=== PATIENT | male | born 1945 | race Hispanic/Latino ===

== ENCOUNTER 2017-03-02 13:32 | Observation (INO) | payer OTHER ==
[~2017-03-02] VITALS: Ht 167.6 cm; Wt 74.2 kg
[~2017-03-02 13:32] MED LIST: AEC81 PO; GLIP5TAB11 PO; LEVO25TA9 PO; METO25 PO; METR500T PO; ROSU40TA28 PO; TAMS-1 PO
[2017-03-02] MEDS ORDERED: HYDRALAZINE HCL 20 MG/ML VIAL IV PRN (14:15)
[2017-03-02] MEDS ORDERED: MORPHINE SULFATE 2 MG/ML 1ML SYG IV PRN (14:15)
[2017-03-02] MEDS ORDERED: ONDANSETRON HCL 4 MG/2 ML VIAL IV PRN (14:15)
[2017-03-02] MEDS ORDERED: MORPHINE SULFATE 4 MG/1ML SYG IV PRN (14:15)
[2017-03-02] MEDS ORDERED: MAG HYDROX/AL HYDROX/SIMETH ES 30 ML SUSP UDCUP PO PRN (14:15)
[2017-03-02] MEDS ORDERED: GUAIFENESIN-DM 200/20 MG 10 ML PO PRN (14:15)
[2017-03-02] MEDS ORDERED: ACETAMINOPHEN-CODEINE 300/30MG TAB PO PRN ×2 (14:15)
[2017-03-02] MEDS ORDERED: NITROGLYCERIN 0.4 MG SL TAB SL PRN (14:15)
[2017-03-02] MEDS ORDERED: ACETAMINOPHEN 325 MG TAB PO PRN ×2 (14:15)
[2017-03-02] MEDS ORDERED: LACTULOSE 20 GM/30 ML UDCUP PO PRN (14:15)
[2017-03-02 15:14] LABS: BASOPHILS % (AUTO) 0.7 % (0.0-5.0); EOSINOPHILS % (AUTO) 2.1 % (0.0-8.0); LYMPHOCYTES % (AUTO) 20.6 % (21.0-51.0); MEAN CORPUSCULAR HEMOGLOBIN 27.5 pg (27.0-33.0); MEAN CORPUSCULAR HGB CONC 33.6 g/dL (32.0-36.0); MEAN CORPUSCULAR VOLUME 81.9 fL (79-99); MONOCYTES % (AUTO) 9.5 % (3.0-13.0); NEUTROPHILS % (AUTO) 67.1 % (40.0-77.0); PLATELET COUNT (AUTO) 311 K/uL (130-400); RED BLOOD CELL COUNT(AUTO) 3.42 MIL/uL (4.50-6.20); RED CELL DISTRIBUTION WIDTH 15.5 % (11.0-15.5); WHITE BLOOD COUNT (AUTO) 12.9 K/uL (4.8-10.8)
[2017-03-02 15:21] LABS: APPEARANCE,URINE Clear (CLEAR); BILIRUBIN,URINE Negative (NEGATIVE); COLOR,URINE Yellow (YELLOW); GLUCOSE, URINE (UA) Negative (NEGATIVE); KETONES,URINE Negative (NEGATIVE); LEUKOCYTE ESTERASE ,URINE Small (NEGATIVE); NITRATE,URINE Negative (NEGATIVE); OCCULT BLOOD,URINE Negative (NEGATIVE); PROTEIN,URINE Negative (NEGATIVE); UROBILINOGEN,URINE 0.2 mg/dL (0.2-1.0)
[2017-03-02 15:26] LABS: INR 1.04 (0.85-1.15); PROTHROMBIN TIME 10.9 SEC (9.6-11.6)
[2017-03-02 15:28] LABS: ALBUMIN 2.7 g/dL (3.5-5.0); BILIRUBIN,TOTAL 0.3 mg/dL (0.2-1.0); CREATININE 3.3 mg/dL (0.5-1.5); POTASSIUM 5.5 mmol/L (3.5-5.1); TOTAL PROTEIN, SERUM 7.3 g/dL (6.0-8.3)
[2017-03-02 15:32] LABS: RETICULOCYTE % (AUTO) 2.03 % (0.42-2.23)
[2017-03-02 15:35] LABS: BACTERIA,URINE Few /HPF (None Seen); MUCUS,URINE Rare LPF (None Seen); RBC,URINE 0-1 /HPF (0-1); SQUAMOUS EPITHELIAL CELL,UR Rare /LPF (0-2)
[2017-03-02 16:21] LABS: % IRON SATURATION 14.8 % (30-44)
[2017-03-02] MEDS: INSULIN HUMULIN R 100 UNIT/ML 3ML SQ SCH ×2 (16:30→21:00)
[2017-03-02] MEDS ORDERED: FAMOTIDINE/PF 20 MG/2 ML VIAL IV ONE (20:17)
[2017-03-02] MEDS: FAMOTIDINE/PF 20 MG/2 ML VIAL IV SCH (21:00)
[2017-03-02] MEDS ORDERED: LISI-613 PO (22:33)
[2017-03-02] MEDS ORDERED: ESOM40CA54 PO (22:33)
[2017-03-02 22:35] VITALS: BP 95/47
[2017-03-02 23:53] VITALS: BP 98/48
[2017-03-03] MEDS ORDERED: CEFTRIAXONE SODIUM 1 GM ONE (02:22)
[2017-03-03] MEDS: SODIUM CHLORIDE 0.9% 1000ML 1,000 ML IV SCH ×3 (02:28→21:01)
[2017-03-03] MEDS: CEFTRIAXONE 1GM/D5W 50ML 50 ML IV SCH (02:28)
[2017-03-03 04:00] VITALS: BP 113/62
[2017-03-03 05:25] LABS: MEAN CORPUSCULAR HEMOGLOBIN 27.6 pg (27.0-33.0); MEAN CORPUSCULAR HGB CONC 34.1 g/dL (32.0-36.0); PLATELET COUNT (AUTO) 278 K/uL (130-400); RED BLOOD CELL COUNT(AUTO) 3.33 MIL/uL (4.50-6.20); RED CELL DISTRIBUTION WIDTH 15.5 % (11.0-15.5)
[2017-03-03 05:43] LABS: CREATININE 2.5 mg/dL (0.5-1.5)
[2017-03-03 07:00] VITALS: BP 97/52
[2017-03-03] MEDS: INSULIN HUMULIN R 100 UNIT/ML 3ML SQ SCH ×3 (07:04→20:40)
[2017-03-03] MEDS: PNEUMOCOCCAL VACCINE POLYVALENT 0.5 ML/VIAL [PPV] IM SCH (07:30)
[2017-03-03] MEDS: NYSTATIN 15 GM POWDER TP SCH ×4 (09:00→20:58)
[2017-03-03] MEDS: SODIUM POLYSTYRENE SULFONATE 15 GM/60 ML ML PO SCH (09:31)
[2017-03-03] MEDS: FAMOTIDINE/PF 20 MG/2 ML VIAL IV SCH ×2 (09:32→20:57)
[2017-03-03] MEDS ORDERED: DEXTROSE 50%-WATER 50 ML DISP.SYRIN IV SCH (10:45)
[2017-03-03] MEDS ORDERED: PHARMACY COMMUNICATION MISC SCH (10:45)
[2017-03-03] MEDS ORDERED: INSULIN HUMULIN R 100 UNIT/ML 3ML SQ SCH (10:45)
[2017-03-03 11:00] VITALS: BP 97/54
[2017-03-03] MEDS ORDERED: FLU VACC QS2017-18 36MOS UP/PF 60 MCG/0.5 ML ML IM SCH (12:15)
[2017-03-03 15:57] VITALS: BP 92/51
[2017-03-03 19:59] VITALS: BP 104/57
[2017-03-03 23:52] VITALS: BP 100/48
[2017-03-04] MEDS: CEFTRIAXONE 1GM/D5W 50ML 50 ML IV SCH (01:15)
[2017-03-04] MEDS ORDERED: CEFTRIAXONE SODIUM 1 GM ONE (01:36)
[2017-03-04 04:00] VITALS: BP 98/59
[2017-03-04] MEDS: INSULIN HUMULIN R 100 UNIT/ML 3ML SQ SCH ×3 (06:34→16:30)
[2017-03-04] MEDS: PNEUMOCOCCAL VACCINE POLYVALENT 0.5 ML/VIAL [PPV] IM SCH (07:30)
[2017-03-04 08:01] VITALS: BP 96/49
[2017-03-04] MEDS: FAMOTIDINE/PF 20 MG/2 ML VIAL IV SCH (09:12)
[2017-03-04] MEDS: SODIUM POLYSTYRENE SULFONATE 15 GM/60 ML ML PO SCH (09:13)
[2017-03-04] MEDS: NYSTATIN 15 GM POWDER TP SCH ×2 (09:14→14:27)
[2017-03-04 11:32] VITALS: BP 94/54
[2017-03-04 14:35] LABS: CREATININE 1.7 mg/dL (0.5-1.5); POTASSIUM 5.2 mmol/L (3.5-5.1)
[2017-03-04 16:25] VITALS: BP 105/59
[2017-03-04] MEDS: SODIUM CHLORIDE 0.9% 1000ML 1,000 ML IV SCH (16:45)
== END 2017-03-04 17:30 | disposition home or self-care (01) ==
LOC: EDH 13:32 → EDHIP 13:33 → 3AH 22:01
PROVIDERS: ADMIT Internal Medicine; ATTEND Internal Medicine
DX: D53.9 Nutritional anemia, unspecified (principal); M10.9 Gout, unspecified; I12.9 Hypertensive chronic kidney disease with stage 1 through stage 4 chronic kidney disease, or unspecified chronic kidney disease; E11.22 Type 2 diabetes mellitus with diabetic chronic kidney disease; N18.3 Chronic kidney disease, stage 3 (moderate); N17.9 Acute kidney failure, unspecified; E87.5 Hyperkalemia; E78.5 Hyperlipidemia, unspecified; E86.0 Dehydration; I25.10 Atherosclerotic heart disease of native coronary artery without angina pectoris; Z86.79 Personal history of other diseases of the circulatory system; Z87.891 Personal history of nicotine dependence; Z90.49 Acquired absence of other specified parts of digestive tract; Z95.1 Presence of aortocoronary bypass graft
CPT/HCPCS: 36415 ×3; 80048 ×2; 80053; 81001; 82270; 82607; 82728; 82746; 82948 ×11; 84132 ×2; 85025; 85027; 85610; 85730; 86850; 86900; 86901; 86922; 96372; 96374; 96375; 96376 ×2; 99285; A4218 ×2; G0378 ×52; J0696 ×4; J1815; J3490 ×4; J7030 ×2; J7070

== ENCOUNTER → 2017-03-12 | Outpatient (CLI) | payer OTHER ==
[~2017-03-12] MED LIST changes: +ESOM40CA54 PO; -METR500T PO
== END | disposition home or self-care (01) ==
LOC: RAH 09:49
PROVIDERS: ATTEND Surgery
DX: K81.0 Acute cholecystitis (principal)
CPT/HCPCS: 78226; A9537

== ENCOUNTER 2021-02-01 20:23 | Inpatient (IN) | payer OTHER ==
[~2021-02-01] VITALS: Ht 172.7 cm; Wt 80.6 kg
[~2021-02-01 20:23] MED LIST changes: +ROSU40TA21 PO; -ROSU40TA28 PO
[2021-02-01 22:24] LABS: BASOPHILS % (AUTO) 1.1 % (0.0-5.0); EOSINOPHILS % (AUTO) 4.8 % (0.0-8.0); HEMATOCRIT 53.9 % (42-54); LYMPHOCYTES % (AUTO) 24.8 % (21.0-51.0); MEAN CORPUSCULAR HEMOGLOBIN 29.2 pg (27.0-33.0); MEAN CORPUSCULAR HGB CONC 32.3 g/dL (32.0-36.0); MEAN CORPUSCULAR VOLUME 90.4 fL (79-99); MONOCYTES % (AUTO) 7.3 % (3.0-13.0); NEUTROPHILS % (AUTO) 61.6 % (40.0-77.0); PLATELET COUNT (AUTO) 168 K/uL (130-400); RED BLOOD CELL COUNT(AUTO) 5.96 MIL/uL (4.50-6.20); RED CELL DISTRIBUTION WIDTH 14.8 % (11.0-15.5); WHITE BLOOD COUNT (AUTO) 7.9 K/uL (4.8-10.8)
[2021-02-01 22:25] LABS: APPEARANCE,URINE Clear (CLEAR); BILIRUBIN,URINE Negative (NEGATIVE); COLOR,URINE Yellow (YELLOW); GLUCOSE, URINE (UA) >=1000 mg/dL (NEGATIVE); KETONES,URINE Negative (NEGATIVE); LEUKOCYTE ESTERASE ,URINE Negative (NEGATIVE); NITRATE,URINE Negative (NEGATIVE); OCCULT BLOOD,URINE Negative (NEGATIVE); PROTEIN,URINE Trace mg/dL (NEGATIVE); UROBILINOGEN,URINE 0.2 mg/dL (0.2-1.0)
[2021-02-01 22:40] LABS: CREATININE 1.4 mg/dL (0.5-1.5); POTASSIUM 4.8 mmol/L (3.5-5.1)
[2021-02-01 22:44] LABS: BILIRUBIN,TOTAL 0.3 mg/dL (0.2-1.0); TOTAL PROTEIN, SERUM 7.5 g/dL (6.0-8.3)
[2021-02-01 23:02] LABS: BACTERIA,URINE None Seen /HPF (None Seen); RBC,URINE 0-1 /HPF (0-1); SQUAMOUS EPITHELIAL CELL,UR Few /HPF (0-2)
[2021-02-01] MEDS ORDERED: NITROGLYCERIN 1GM OINT 1 INCH/1GM TD ONE ×2 (23:23→23:30)
[2021-02-01] MEDS ORDERED: ASPIRIN 325MG TAB ONE (23:24)
[2021-02-01] MEDS ORDERED: ASPIRIN 325MG TAB PO ONE (23:30)
[2021-02-02] MEDS ORDERED: HEPARIN 5,000 UNIT VIAL SQ SCH
[2021-02-02 00:14] LABS: PROTHROMBIN TIME 10.9 SEC (9.6-11.6)
[2021-02-02 00:15] LABS: PARTIAL THROMBOPLASTIN TIME 26.5 SEC (26.3-35.5)
[2021-02-02] MEDS ORDERED: ZOLPIDEM TARTRATE 5 MG TAB PO PRN (00:30)
[2021-02-02] MEDS ORDERED: GLUCAGON 1MG KIT 1 MG ML IM PRN (00:30)
[2021-02-02] MEDS ORDERED: ALBUTEROL 0.083% 2.5 MG/3 ML INH IH PRN (00:30)
[2021-02-02] MEDS ORDERED: MORPHINE 4 MG SYG IV PRN (00:30)
[2021-02-02] MEDS ORDERED: NITROGLYCERIN 0.4 MG SL TAB SL PRN (00:30)
[2021-02-02] MEDS ORDERED: LACTULOSE 20 GM/30 ML UDCUP PO PRN (00:30)
[2021-02-02] MEDS ORDERED: ACETAMINOPHEN 325 MG TAB PO PRN ×2 (00:30)
[2021-02-02] MEDS ORDERED: HYDROCODONE/ACETAMINOPHEN 5/325 MG TAB PO PRN (00:30)
[2021-02-02] MEDS ORDERED: MAG/ALUM/SIMETH 30 ML UDCUP PO PRN (00:30)
[2021-02-02] MEDS ORDERED: GUAIFENESIN-DM 200/20 MG 10 ML PO PRN (00:30)
[2021-02-02] MEDS ORDERED: ONDANSETRON 4MG INJ IV PRN (00:30)
[2021-02-02] MEDS ORDERED: DEXTROSE 50%-WATER 50 ML DISP.SYRIN IV PRN (00:30)
[2021-02-02] MEDS ORDERED: POTASSIUM CHLORIDE 10MEQ/100ML 100 ML IV PRN (00:30)
[2021-02-02] MEDS ORDERED: ATORVASTATIN 40 MG TABLET ONE (01:28)
[2021-02-02] MEDS ORDERED: HYDRALAZINE 20MG/ML VIAL IV PRN (01:30)
[2021-02-02] MEDS ORDERED: EMPA10TA PO (01:41)
[2021-02-02] MEDS ORDERED: GLIP10TA9 PO (01:41)
[2021-02-02] MEDS ORDERED: ALLO100T PO (01:41)
[2021-02-02] MEDS: ATORVASTATIN 40 MG TABLET PO SCH ×3 (01:43→20:54)
[2021-02-02] MEDS ORDERED: CLOPIDOGREL 300MG TAB ONE (02:30)
[2021-02-02] MEDS ORDERED: CLOPIDOGREL 300MG TAB PO ONE (02:30)
[2021-02-02 06:57] LABS: HEMATOCRIT 47.1 % (42-54); MEAN CORPUSCULAR HGB CONC 32.9 g/dL (32.0-36.0); MEAN CORPUSCULAR VOLUME 88.2 fL (79-99); RED BLOOD CELL COUNT(AUTO) 5.34 MIL/uL (4.50-6.20); RED CELL DISTRIBUTION WIDTH 14.5 % (11.0-15.5); WHITE BLOOD COUNT (AUTO) 7.4 K/uL (4.8-10.8)
[2021-02-02] MEDS ORDERED: HEPARIN 25,000 UNITS/250ML D5W 250 ML IV SCH (07:00)
[2021-02-02 07:13] LABS: CREATININE 1.2 mg/dL (0.5-1.5); POTASSIUM 4.1 mmol/L (3.5-5.1)
[2021-02-02] MEDS: FAMOTIDINE 20MG VIAL IV SCH ×2 (08:10→20:54)
[2021-02-02] MEDS ORDERED: LISINOPRIL 2.5 MG TABLET PO SCH (09:00)
[2021-02-02] MEDS ORDERED: FAMOTIDINE 20MG TAB PO SCH (09:00)
[2021-02-02] MEDS ORDERED: METOPROLOL TARTRATE 25 MG TAB PO SCH (09:00)
[2021-02-02] MEDS ORDERED: ASPIRIN 325MG TAB PO SCH (09:00)
[2021-02-02] MEDS ORDERED: ASPIRIN 81 MG EC TAB PO SCH (09:00)
[2021-02-02] MEDS ORDERED: ALLOPURINOL 100 MG TABLET PO SCH (09:00)
[2021-02-02 10:33] LABS: HEMOGLOBIN A1C 7.8 % (4.0-6.0)
[2021-02-02] MEDS ORDERED: BIVALIRUDIN 250 MG/VIAL IV ONE (10:40)
[2021-02-02] MEDS ORDERED: IOHEXOL-350 50ML VIAL IV ONE (10:40)
[2021-02-02] MEDS ORDERED: NITROGLYCERIN 50MG VIAL IV ONE (10:40)
[2021-02-02] MEDS ORDERED: IOHEXOL 350 MG/ML 100ML INFUS..BTL IV ONE (10:41)
[2021-02-02] MEDS ORDERED: LIDOCAINE HCL 400MG/20ML VIAL ONE (10:41)
[2021-02-02] MEDS ORDERED: MIDAZOLAM HCL 1 MG/ML 2ML VIAL ONE (12:19)
[2021-02-02] MEDS ORDERED: ACETAMINOPHEN WITH CODEINE 1 TAB TAB PO PRN (13:30)
[2021-02-02 13:45] VITALS: BP 167/80
[2021-02-02 14:00] VITALS: BP 164/100
[2021-02-02 14:15] VITALS: BP 155/81
[2021-02-02 14:30] VITALS: BP 167/85
[2021-02-02] MEDS: FUROSEMIDE 20 MG TABLET PO SCH (17:07)
[2021-02-02] MEDS ORDERED: FENTANYL CITRATE PF 50 MCG/1 ML 2ML VIAL IVP ONE (17:30)
[2021-02-02 19:20] VITALS: BP 165/97
[2021-02-02] MEDS: SPIRONOLACTONE 25 MG TAB PO SCH (20:54)
[2021-02-02] MEDS ORDERED: LABETALOL 20MG VIAL IV PRN (23:30)
[2021-02-02] MEDS ORDERED: NICARDIPINE 25MG INJ 25 MG in 0.9% NACL 250ML 240 ML IV SCH (23:30)
[2021-02-02 23:39] VITALS: BP 148/81
[2021-02-03 03:08] VITALS: BP 111/51
[2021-02-03 03:53] LABS: MEAN CORPUSCULAR HGB CONC 32.4 g/dL (32.0-36.0); MEAN CORPUSCULAR VOLUME 89.6 fL (79-99); RED BLOOD CELL COUNT(AUTO) 5.69 MIL/uL (4.50-6.20); RED CELL DISTRIBUTION WIDTH 14.8 % (11.0-15.5); WHITE BLOOD COUNT (AUTO) 12.4 K/uL (4.8-10.8)
[2021-02-03 04:15] LABS: POTASSIUM 4.6 mmol/L (3.5-5.1)
[2021-02-03] MEDS: LEVOTHYROXINE 25 MCG TABLET PO SCH (06:47)
[2021-02-03] MEDS: PANTOPRAZOLE 40 MG TAB DR PO SCH (06:47)
[2021-02-03 08:05] VITALS: BP 102/50
[2021-02-03] MEDS: ASPIRIN 81MG CHEW TAB PO SCH (08:47)
[2021-02-03] MEDS: FAMOTIDINE 20MG VIAL IV SCH ×2 (08:47→20:34)
[2021-02-03] MEDS: FUROSEMIDE 20 MG TABLET PO SCH ×2 (08:48→17:05)
[2021-02-03] MEDS: CLOPIDOGREL 75MG TAB PO SCH (08:48)
[2021-02-03] MEDS: LISINOPRIL 10 MG TABLET PO SCH (08:49)
[2021-02-03] MEDS: SPIRONOLACTONE 25 MG TAB PO SCH ×2 (08:49→20:34)
[2021-02-03] MEDS ORDERED: ASPIRIN 81 MG EC TAB PO SCH (09:00)
[2021-02-03 12:23] VITALS: BP 113/55
[2021-02-03] MEDS: ACETAMINOPHEN WITH CODEINE 1 TAB TAB PO PRN ×2 (13:33→20:46)
[2021-02-03 16:22] VITALS: BP 102/50
[2021-02-03 17:00] LABS: CREATININE 2.4 mg/dL (0.5-1.5); POTASSIUM 4.7 mmol/L (3.5-5.1)
[2021-02-03 19:15] VITALS: BP 131/82
[2021-02-03] MEDS: ATORVASTATIN 40 MG TABLET PO SCH (20:34)
[2021-02-03 22:53] VITALS: BP 140/76
[2021-02-04] MEDS: ACETAMINOPHEN WITH CODEINE 1 TAB TAB PO PRN ×3 (02:39→22:27)
[2021-02-04 03:04] VITALS: BP 130/78
[2021-02-04 04:16] LABS: HEMATOCRIT 48.2 % (42-54); MEAN CORPUSCULAR HEMOGLOBIN 28.9 pg (27.0-33.0); MEAN CORPUSCULAR HGB CONC 32.8 g/dL (32.0-36.0); MEAN CORPUSCULAR VOLUME 88.1 fL (79-99); RED BLOOD CELL COUNT(AUTO) 5.47 MIL/uL (4.50-6.20); RED CELL DISTRIBUTION WIDTH 14.6 % (11.0-15.5); WHITE BLOOD COUNT (AUTO) 13.4 K/uL (4.8-10.8)
[2021-02-04 04:29] LABS: CREATININE 2.4 mg/dL (0.5-1.5); POTASSIUM 4.4 mmol/L (3.5-5.1)
[2021-02-04] MEDS: LEVOTHYROXINE 25 MCG TABLET PO SCH (06:08)
[2021-02-04] MEDS: PANTOPRAZOLE 40 MG TAB DR PO SCH ×2 (06:08→08:25)
[2021-02-04 07:00] VITALS: BP 127/77
[2021-02-04] MEDS: CLOPIDOGREL 75MG TAB PO SCH (08:24)
[2021-02-04] MEDS: ASPIRIN 81MG CHEW TAB PO SCH (08:25)
[2021-02-04] MEDS: SPIRONOLACTONE 25 MG TAB PO SCH ×2 (08:25→20:06)
[2021-02-04] MEDS: FUROSEMIDE 20 MG TABLET PO SCH ×2 (08:25→16:39)
[2021-02-04] MEDS: FAMOTIDINE 20MG VIAL IV SCH ×2 (08:26→20:06)
[2021-02-04] MEDS: LISINOPRIL 10 MG TABLET PO SCH (08:26)
[2021-02-04 11:00] VITALS: BP 126/83
[2021-02-04 16:00] VITALS: BP 140/76
[2021-02-04 19:56] VITALS: BP 131/73
[2021-02-04] MEDS: ATORVASTATIN 40 MG TABLET PO SCH (20:06)
[2021-02-04] MEDS ORDERED: GLIP5TAB11 PO (22:14)
[2021-02-04 23:41] VITALS: BP 131/78
[2021-02-05 03:40] VITALS: BP 120/70
[2021-02-05 04:11] LABS: CREATININE 2.5 mg/dL (0.5-1.5); POTASSIUM 4.1 mmol/L (3.5-5.1)
[2021-02-05] MEDS: LEVOTHYROXINE 25 MCG TABLET PO SCH (06:00)
[2021-02-05 07:49] VITALS: BP 136/84
[2021-02-05] MEDS: CLOPIDOGREL 75MG TAB PO SCH (08:56)
[2021-02-05] MEDS: FAMOTIDINE 20MG VIAL IV SCH (08:56)
[2021-02-05] MEDS: LISINOPRIL 10 MG TABLET PO SCH (08:57)
[2021-02-05] MEDS: ASPIRIN 81MG CHEW TAB PO SCH (08:57)
[2021-02-05] MEDS: SPIRONOLACTONE 25 MG TAB PO SCH (08:57)
[2021-02-05] MEDS: FUROSEMIDE 20 MG TABLET PO SCH ×2 (08:58→17:00)
[2021-02-05 11:54] VITALS: BP 121/59
[2021-02-05] MEDS ORDERED: FURO20TA6 PO (13:58)
[2021-02-05] MEDS ORDERED: SPIR25TA6 PO (13:58)
[2021-02-05] MEDS ORDERED: CLOP75TA14 PO (13:58)
[2021-02-05 16:00] VITALS: BP 127/62
== END 2021-02-05 18:35 | disposition home or self-care (01) | DRG 280 ==
LOC: EDH 20:23 → OBSVTOIN 23:40 → EDHIP 23:40 → 2AH 02-02 14:27
PROVIDERS: ADMIT Internal Medicine Critical Care Medicine; ATTEND Internal Medicine Critical Care Medicine
PROC: 4A023N7 Measurement of Cardiac Sampling and Pressure, Left Heart, Percutaneous Approach (ICD-10-PCS; principal; 2021-02-02)
PROC: B2111ZZ Fluoroscopy of Multiple Coronary Arteries using Low Osmolar Contrast (ICD-10-PCS; 2021-02-02)
PROC: B2151ZZ Fluoroscopy of Left Heart using Low Osmolar Contrast (ICD-10-PCS; 2021-02-02)
PROC: B41F1ZZ Fluoroscopy of Right Lower Extremity Arteries using Low Osmolar Contrast (ICD-10-PCS; 2021-02-02)
DX: I21.4 Non-ST elevation (NSTEMI) myocardial infarction (principal); I50.43 Acute on chronic combined systolic (congestive) and diastolic (congestive) heart failure; N17.9 Acute kidney failure, unspecified; I13.0 Hypertensive heart and chronic kidney disease with heart failure and stage 1 through stage 4 chronic kidney disease, or unspecified chronic kidney disease; E11.65 Type 2 diabetes mellitus with hyperglycemia; E78.5 Hyperlipidemia, unspecified; E11.36 Type 2 diabetes mellitus with diabetic cataract; E11.22 Type 2 diabetes mellitus with diabetic chronic kidney disease; N18.31 Chronic kidney disease, stage 3a; E86.0 Dehydration; E03.9 Hypothyroidism, unspecified; I25.5 Ischemic cardiomyopathy; I34.0 Nonrheumatic mitral (valve) insufficiency; Z20.822 Contact with and (suspected) exposure to COVID-19; I25.10 Atherosclerotic heart disease of native coronary artery without angina pectoris; I71.4 Abdominal aortic aneurysm, without rupture; E11.51 Type 2 diabetes mellitus with diabetic peripheral angiopathy without gangrene; I25.2 Old myocardial infarction; Z95.1 Presence of aortocoronary bypass graft; Z87.19 Personal history of other diseases of the digestive system; Z87.891 Personal history of nicotine dependence; Z90.49 Acquired absence of other specified parts of digestive tract; Z79.84 Long term (current) use of oral hypoglycemic drugs; Z79.899 Other long term (current) drug therapy; Z91.19 Patient's noncompliance with other medical treatment and regimen
CPT/HCPCS: 36415; 71045; 76882; 80048; 80053; 80061; 81001; 82948; 83036; 83605; 83690; 83880; 84439; 84443; 84484; 85025; 85027; 85347; 85610; 85730; 87635; 87804; 87880; 93005; 93306; 93356; 93459; 97039; 99156; 99157; C1760; C1769; C1894; C9803; G0378; J0583; J1644; J2250; J2405; J3010; J3490; J7050; Q9967

== ENCOUNTER → 2021-02-27 | Outpatient (CLI) | payer OTHER ==
[~2021-02-27] MED LIST changes: +CLOP75TA14 PO; +EMPA10TA PO; +FURO20TA6 PO; -METO25 PO; +SPIR25TA6 PO; -TAMS-1 PO
[2021-02-27 13:06] LABS: ALBUMIN 3.5 g/dL (3.5-5.0); BILIRUBIN,TOTAL 0.4 mg/dL (0.2-1.0); CREATININE 5.3 mg/dL (0.5-1.5); TOTAL PROTEIN, SERUM 8.1 g/dL (6.0-8.3)
[2021-02-27 13:12] LABS: POTASSIUM 6.6 mmol/L (3.5-5.1)
== END | disposition home or self-care (01) ==
LOC: LAB 11:38
PROVIDERS: ATTEND Family Medicine
DX: E86.0 Dehydration (principal)
CPT/HCPCS: 36415; 80053